=== PATIENT | female | born 1955 | race Caucasian/White ===

== ENCOUNTER 2017-04-24 09:58 | Outpatient (RCR) | payer MEDICAID | END 2017-05-13 02:31 | disposition home or self-care (01) | LOC: DSME 09:58 | PROVIDERS: ATTEND Internal Medicine Endocrinology, Diabetes & Metabolism | DX: E11.65 Type 2 diabetes mellitus with hyperglycemia (principal); E11.40 Type 2 diabetes mellitus with diabetic neuropathy, unspecified ==

== ENCOUNTER → 2017-04-27 | Outpatient (CLI) | payer MEDICAID ==
--- NOTE | 2017-04-27 12:29 | Diagnostic Imaging Report ---
PROCEDURE: US Thyroid. TECHNIQUE: Multiple real-time grayscale images were obtained of the thyroid in various projections. INDICATION: Multiple thyroid nodules. FINDINGS: The right thyroid lobe is 4.4 x 1.6 x 1.4 cm. The left lobe is 5.0 x 1.6 x 1.1 cm. In the upper aspect of the right thyroid lobe is a nodule measuring 1 x 0.6 x 0.6 cm. The nodule in the right side of the isthmus measures 1 x 0.5 x 0.7 cm. In the upper aspect of the left lobe there is a hypoechoic nodule measuring 0.6 x 0.4 x 05 cm. IMPRESSION: Nonspecific thyroid nodules up to 1 cm in size may relate to a multinodular goiter. Dictated by: Dictated on workstation # [id number]
== END ==
LOC: RAD 10:05
PROVIDERS: ATTEND Internal Medicine Endocrinology, Diabetes & Metabolism
DX: E04.2 Nontoxic multinodular goiter (principal)
CPT/HCPCS: 76536